=== PATIENT | male | born 1945 | race Caucasian/White ===

== ENCOUNTER 2017-07-31 08:05 | Observation (INO) ==
[2017-07-31] MEDS ORDERED: ASPIRIN 325 MG TABLET PO STA (08:35)
[2017-07-31] MEDS ORDERED: ONDANSETRON 4 MG/2 ML VIAL IV STA (08:35)
[2017-07-31] MEDS ORDERED: NITROGLYCERIN 2% OINT 1 INCH/GM PACK TOP STA (08:35)
[2017-07-31] MEDS ORDERED: METOPROLOL TARTRATE 5 MG/5 ML VIAL IV STA (08:35)
[2017-07-31] MEDS ORDERED: MORPHINE 2 MG/1 ML SYRINGE IV STA (08:35)
[2017-07-31] MEDS ORDERED: ENOXAPARIN 100 MG/ML SYRINGE SUBCUT STA (08:35)
[2017-07-31] MEDS ORDERED: NITROGLYCERIN SL 0.4 MG TABLET SL PRN (08:35)
[2017-07-31] MEDS ORDERED: NITROGLYCERIN 2% OINT 1 INCH/GM PACK TOP ONE (08:47)
[2017-07-31] MEDS ORDERED: MORPHINE 2 MG/1 ML SYRINGE ONE (08:47)
[2017-07-31] MEDS ORDERED: ONDANSETRON 4 MG/2 ML VIAL ONE (08:47)
[2017-07-31] MEDS ORDERED: ENOXAPARIN 80 MG/0.8 ML SYRINGE SUBCUT ONE ×2 (08:47→20:40)
[2017-07-31] MEDS ORDERED: METOPROLOL TARTRATE 5 MG/5 ML VIAL IV ONE (08:47)
[2017-07-31] MEDS ORDERED: NITROGLYCERIN SL 0.4 MG TABLET SL ONE (08:48)
[2017-07-31] MEDS ORDERED: ASPIRIN 325 MG TABLET ONE (08:48)
[2017-07-31 08:58] LABS: Basophils # 0.1 10*3/uL (0.0-0.2); Basophils % 1.4 % (0.0-0.8); Eosinophils # 0.2 10*3/uL (0.0-0.87); Eosinophils % 4.3 % (0.00-10.9); Hematocrit 44.9 VOL% (42.0-52.0); Hemoglobin 15.5 GM/DL (14.0-18.0); Immature Granulocytes % 0.5 %; Immature Granulocytes Absolute 0.02 #; Lymphocytes # 0.8 10*3/uL (1.4-4.0); Lymphocytes % 17.9 % (21.2-54.2); Mean Corpuscular HGB Conc 34.5 GM/DL (32-36); Mean Corpuscular Hemoglobin 29 PG (27-34); Mean Corpuscular Volume 83.8 FL (87-102); Mean Platelet Volume 10.6 FL (9.6-12.0); Monocytes # 0.4 10*3/uL (0.11-0.8); Monocytes % 8.8 % (1.7-12.7); Neutrophils # 2.8 10*3/uL (1.4-7.4); Neutrophils % 67.1 % (38.7-73.9); Platelet Count 221 T/CUMM (130-400); Red Blood Count 5.36 MC/CUMM (3.8-5.5); Red Cell Distribution Width 13.3 % (9.3-17.3); White Blood Count 4.2 T/CUMM (4-12)
[2017-07-31 09:12] LABS: PT Patient Result 10.1 SECS; Partial Thromboplastin Time 24.9 SECS (0-40)
[2017-07-31] MEDS ORDERED: ALUM/MAG/SIMETH/LIDO VISC 1:1 30 ML BOTTLE PO STA (09:18)
[2017-07-31] MEDS ORDERED: ZALEPLON 5 MG CAPSULE PO PRN (09:20)
[2017-07-31] MEDS ORDERED: guaiFENesin/DM ER 600-30 MG TABLET PO PRN (09:20)
[2017-07-31] MEDS ORDERED: BISACODYL 5 MG TABLET PO PRN (09:20)
[2017-07-31] MEDS ORDERED: ONDANSETRON 4 MG/2 ML VIAL IV PRN (09:20)
[2017-07-31] MEDS ORDERED: POTASSIUM CHLORIDE RIDER 10 MEQ in PREMIX 1 EACH IV PRN (09:24)
[2017-07-31] MEDS ORDERED: MAGNESIUM SULF RIDER 2 GM in PREMIX 1 EACH IV PRN (09:24)
[2017-07-31 09:25] LABS: Albumin 4.9 G/DL (3.4-5.0); Bilirubin,Total 0.5 MG/DL (0.2-1.0); Calcium 10.3 MG/DL (8.5-10.1); Osmolality,Calculated 279.1 MOS/KG (273-304); Potassium 4.3 MMOL/L (3.5-5.1); Total Protein 7.7 G/DL (6.4-8.3)
[2017-07-31 09:29] LABS: Troponin I Only 0.143 NG/ML (0.00-0.045)
[2017-07-31] MEDS ORDERED: SODIUM CHLORIDE 0.9% 1,000 ML IV SCH (09:30)
[2017-07-31] MEDS ORDERED: ALUM/MAG/SIMETH/LIDO VISC 1:1 30 ML BOTTLE PO ONE (10:31)
[2017-07-31 13:13] LABS: Troponin I Only 0.146 NG/ML (0.00-0.045)
[2017-07-31] MEDS: SODIUM CHLORIDE 0.9% 1,000 ML IV SCH (14:18)
[2017-07-31] MEDS: ACETAMINOPHEN 325 MG TABLET PO PRN ×2 (14:20→22:00)
[2017-07-31] MEDS: NITROGLYCERIN 2% OINT 1 INCH/GM PACK TOP SCH ×3 (14:23→22:34)
[2017-07-31] MEDS: INSULIN REGULAR 100 UNIT/ML SUBCUT SCH ×2 (14:24→18:32)
[2017-07-31 16:05] LABS: Troponin I Only 0.178 NG/ML (0.00-0.045)
[2017-07-31] MEDS: POTASSIUM CHLORIDE 10 MEQ TABLET PO SCH (22:35)
[2017-08-01] MEDS: INSULIN REGULAR 100 UNIT/ML SUBCUT SCH ×5 (00:03→22:43)
[2017-08-01] MEDS: NITROGLYCERIN 2% OINT 1 INCH/GM PACK TOP SCH ×2 (00:04→07:17)
[2017-08-01 06:21] LABS: Eosinophils # 0.2 10*3/uL (0.0-0.87); Eosinophils % 5.3 % (0.00-10.9); Hematocrit 38.2 VOL% (42.0-52.0); Immature Granulocytes % 0.3 %; Immature Granulocytes Absolute 0.01 #; Lymphocytes # 0.7 10*3/uL (1.4-4.0); Lymphocytes % 17.5 % (21.2-54.2); Mean Corpuscular HGB Conc 35.1 GM/DL (32-36); Mean Corpuscular Hemoglobin 29 PG (27-34); Mean Corpuscular Volume 83.8 FL (87-102); Mean Platelet Volume 11.1 FL (9.6-12.0); Monocytes # 0.4 10*3/uL (0.11-0.8); Neutrophils # 2.7 10*3/uL (1.4-7.4); Neutrophils % 66.9 % (38.7-73.9); Platelet Count 179 T/CUMM (130-400); Red Blood Count 4.56 MC/CUMM (3.8-5.5); Red Cell Distribution Width 13.5 % (9.3-17.3)
[2017-08-01 06:38] LABS: Hemoglobin 13.4 GM/DL (14.0-18.0)
[2017-08-01 06:56] LABS: Risk Ratio 5.04; VLDL CHOLESTEROL 60.4 MG/DL
[2017-08-01 06:59] LABS: Calcium 8.4 MG/DL (8.5-10.1); Osmolality,Calculated 283.5 MOS/KG (273-304); Potassium 4.3 MMOL/L (3.5-5.1)
[2017-08-01] MEDS ORDERED: diphenhydrAMINE CAP 25 MG CAPSULE PO ONE (07:00)
[2017-08-01] MEDS ORDERED: DIAZEPAM 5 MG TABLET PO ONE (07:00)
[2017-08-01] MEDS: SODIUM CHLORIDE 0.9% 1,000 ML IV SCH (07:17)
[2017-08-01] MEDS: ASPIRIN 325 MG TABLET PO SCH (08:10)
[2017-08-01] MEDS: FENOFIBRATE 145 MG TABLET PO SCH (08:10)
[2017-08-01] MEDS: CETIRIZINE 10 MG TABLET PO SCH (08:10)
[2017-08-01] MEDS: RAMIPRIL 5 MG CAPSULE PO SCH (08:10)
[2017-08-01] MEDS: POTASSIUM CHLORIDE 10 MEQ TABLET PO SCH ×2 (08:10→21:33)
[2017-08-01] MEDS: PANTOPRAZOLE 40 MG TABLET PO SCH (08:11)
[2017-08-01] MEDS: METOPROLOL SUCCINATE XL 25 MG TABLET PO SCH (08:11)
[2017-08-01] MEDS ORDERED: FUROSEMIDE 40 MG TABLET PO SCH (09:00)
[2017-08-01] MEDS ORDERED: LIDOCAINE 2%/EPI 20 ML VIAL ONE ×2 (09:55→10:17)
[2017-08-01] MEDS ORDERED: HEPARIN/NACL 0.9% 2 UNITS/ML 0 ML IV ONE (09:55)
[2017-08-01] MEDS ORDERED: methylPREDNISolone SOD SUC 125 MG/2 ML VIAL ONE (10:16)
[2017-08-01] MEDS ORDERED: MIDAZOLAM 2 MG/2 ML VIAL ONE (10:16)
[2017-08-01] MEDS ORDERED: fentaNYL 100 MCG/2 ML VIAL ONE (10:16)
[2017-08-01] MEDS ORDERED: HEPARIN/NACL 0.9% 2 UNITS/ML 2,000 ML IV ONE (10:17)
[2017-08-02 05:16] LABS: Basophils % 0.1 % (0.0-0.8); Eosinophils # 0.1 10*3/uL (0.0-0.87); Eosinophils % 0.7 % (0.00-10.9); Hematocrit 38.6 VOL% (42.0-52.0); Hemoglobin 13.2 GM/DL (14.0-18.0); Immature Granulocytes % 0.5 %; Immature Granulocytes Absolute 0.04 #; Lymphocytes # 0.8 10*3/uL (1.4-4.0); Lymphocytes % 10.5 % (21.2-54.2); Mean Corpuscular HGB Conc 34.2 GM/DL (32-36); Mean Corpuscular Hemoglobin 29 PG (27-34); Mean Corpuscular Volume 83.7 FL (87-102); Mean Platelet Volume 10.8 FL (9.6-12.0); Monocytes # 0.5 10*3/uL (0.11-0.8); Monocytes % 7.2 % (1.7-12.7); Platelet Count 186 T/CUMM (130-400); Red Blood Count 4.61 MC/CUMM (3.8-5.5); Red Cell Distribution Width 13.2 % (9.3-17.3); White Blood Count 7.5 T/CUMM (4-12)
[2017-08-02 05:37] LABS: Calcium 8.3 MG/DL (8.5-10.1); Osmolality,Calculated 284.4 MOS/KG (273-304); Potassium 3.9 MMOL/L (3.5-5.1)
[2017-08-02 07:52] VITALS: BP 135/63
[2017-08-02] MEDS ORDERED: amLODIPine 5 MG TABLET PO SCH (09:00)
[2017-08-02] MEDS ORDERED: ISOSORBIDE MONONITRATE 60 MG TABLET PO SCH (09:00)
[2017-08-02] MEDS: ASPIRIN 325 MG TABLET PO SCH (10:05)
[2017-08-02] MEDS: METOPROLOL SUCCINATE XL 25 MG TABLET PO SCH (10:06)
[2017-08-02] MEDS: PANTOPRAZOLE 40 MG TABLET PO SCH (10:06)
[2017-08-02] MEDS: FENOFIBRATE 145 MG TABLET PO SCH (10:06)
[2017-08-02] MEDS: CETIRIZINE 10 MG TABLET PO SCH (10:09)
[2017-08-02] MEDS: POTASSIUM CHLORIDE 10 MEQ TABLET PO SCH (10:09)
[2017-08-02] MEDS: INSULIN REGULAR 100 UNIT/ML SUBCUT SCH (10:13)
[2017-08-02] MEDS: RAMIPRIL 5 MG CAPSULE PO SCH (10:13)
== END 2017-08-02 11:49 | disposition home or self-care (01) ==
LOC: N.EDINP 08:05 → N.ED 08:05 → N.TELEN 10:50
PROVIDERS: ADMIT Internal Medicine Interventional Cardiology; ATTEND Internal Medicine Interventional Cardiology